=== PATIENT | female | born 1975 | race Caucasian/White ===

== ENCOUNTER 2017-09-20 09:10 | Day surgery (SDC) | payer BC ==
[~2017-09-20 09:10] MED LIST: Lactated Ringers 1,000 ML IV SCH; Midazolam 1 MG/ML 2 ML SDV ONE; Propofol 200 MG/20 ML SDV ONE; Sodium Chloride 0.9% 10 ML Syringe FLUSH PRN; Sodium Chloride 0.9% 2.5 ML Syringe FLUSH PRN; fentaNYL 100 MCG/2 ML SDV ONE
--- NOTE | 2017-09-20 09:34 | PCM.PREANE ---
Preanesthetic Assessment - Anesthesia/Transfusion/Family Hx Anesthesia History: Prior Anesthesia Without Reaction Family History of Anesthesia Reaction: No Transfusion History: No Prior Transfusion(s) Intubation History: Unknown - Review of Systems General: No Symptoms Pulmonary: No Symptoms Cardiovascular: No Symptoms Gastrointestinal: Other (rectal pain and severe GERD) Neurological: No Symptoms Other: Reports: None - Physical Assessment Height: 1.63 m Weight: 114.759 kg ASA Class: 2 Mental Status: Alert & Oriented x3 Airway Class: Mallampati = 2 Dentition: Reports: Normal Dentition Thyro-Mental Finger Breadths: 3 Mouth Opening Finger Breadths: 2 ROM/Head Extension: Full Lungs: Clear to Auscultation, Normal Respiratory Effort Cardiovascular: Regular Rate, Regular Rhythm - Lab Values: Laboratory Last Values Urine HCG, Qual NEGATIVE (NEGATIVE) 09/20/17 09:12 - Allergies Allergies/Adverse Reactions: Allergies Allergy/AdvReac Type Severity Reaction Status Date / Time No Known Allergies Allergy Verified 09/15/17 10:04 - Blood Blood Available: No - Anesthesia Plan Pre-Op Medication Ordered: None - Acknowledgements Anesthesia Type Planned: MAC Pt an Appropriate Candidate for the Planned Anesthesia: Yes Alternatives and Risks of Anesthesia Discussed w Pt/Guardian: Yes Pt/Guardian Understands and Agrees with Anesthesia Plan: Yes PreAnesthesia Questionnaire HEENT History: Reports: Other (See Below) Other HEENT History: wears glasses/contacts Cardiovascular History: Reports: Hypertension Respiratory History: Reports: None Gastrointestinal History: Reports: GERD Genitourinary History: Reports: None [employer] History: Reports: None Other OB/BYN History: IUD Musculoskeletal History: Reports: Fracture Other Musculoskeletal History: hx fx collarbone Neurological History: Reports: Migraines (bad once a month) Psychiatric History: Reports: Anxiety, Depression Endocrine/Metabolic History: Reports: Hypothyroidism, Obesity/BMI 30+ (morbid obesity BMI 43.4) Other Endocrine/Metabolic History: "pre diabetic" Hematologic History: Reports: None Immunologic History: Reports: None Oncologic (Cancer) History: Reports: None Dermatologic History: Reports: None - Past Surgical History Head Surgeries/Procedures: Reports: None HEENT Surgical History: Reports: Adenoidectomy, Oral Surgery, Tonsillectomy Cardiovascular Surgical History: Reports: None Respiratory Surgical History: Reports: None GI Surgical History: Reports: Cholecystectomy Female Surgical History: Reports: Salpingo-Oophorectomy Other Female Surgeries/Procedures: laparotomy with S&O Male Surgical History: Reports: Other (See Below) Endocrine Surgical History: Reports: None Neurological Surgical History: Reports: None Musculoskeletal Surgical History: Reports: None - History Comment History Comment: ETOH "RARELY" - SUBSTANCE USE Smoking Status *Q: Never Smoker Second Hand Smoke Exposure: No Days Per Week of Alcohol Use: 1 Number of Drinks Per Day: 1 Total Drinks Per Week: 1 Recreational Drug Use History: No - HOME MEDS Home Medications: Home Meds Hydrochlorothiazide 25 mg PO DAILY 01/11/14 [History] Propranolol HCl [Inderal Xl] 80 mg PO DAILY 01/11/14 [History] Liraglutide [Victoza] 1.8 mg SUBCUT DAILY 02/12/16 [History] DULoxetine [Cymbalta] 60 mg PO QPM 02/16/16 [History] Levothyroxine 50 mcg PO ASDIRECTED 02/17/16 [History] Levothyroxine [Synthroid] 75 mcg PO ASDIRECTED 02/17/16 [History] Modafinil [Provigil] 200 mg PO DAILY 02/17/16 [History] Cyclobenzaprine HCl 10 mg PO TID PRN 09/15/17 [History] Fluticasone Propionate [Flonase Allergy Relief] 1 spray NASBOTH ASDIRECTED 09/15 [History] NIFEdipine [Nifedipine ER] 30 mg PO DAILY 09/15/17 [History] Ranitidine HCl 300 mg PO BID 09/15/17 [History] SUMAtriptan Succinate [Imitrex] 1 tab PO ASDIRECTED PRN 09/15/17 [History] - CURRENT (IN HOUSE) MEDS Current Meds: Current Medications Lactated Ringer's (Ringers, Lactated) 1,000 mls @ 125 mls/hr IV ASDIRECTED LACY Last Admin: 09/20/17 09:19 Dose: 125 mls/hr Sodium Chloride (Saline Flush) 10 ml FLUSH ASDIRECTED PRN PRN Reason: Keep Vein Open Sodium Chloride (Saline Flush) 2.5 ml FLUSH ASDIRECTED PRN PRN Reason: Keep Vein Open Sodium Chloride (Saline Flush) 10 ml FLUSH ASDIRECTED PRN PRN Reason: Keep Vein Open Sodium Chloride (Saline Flush) 2.5 ml FLUSH ASDIRECTED PRN PRN Reason: Keep Vein Open Discontinued Medications Fentanyl (Sublimaze) Confirm Administered Dose 100 mcg .ROUTE .STK-MED ONE Stop: 09/20/17 07:38 Midazolam HCl (Versed 1 Mg/Ml) Confirm Administered Dose 2 mg .ROUTE .STK-MED ONE Stop: 09/20/17 07:38 Propofol (Diprivan 20 Ml) Confirm Administered Dose 200 mg .ROUTE .STK-MED ONE Stop: 09/20/17 07:37
[2017-09-20] MEDS ORDERED: Propofol 200 MG/20 ML SDV ONE (09:52)
[2017-09-20 10:35] VITALS: BP 114/66
--- NOTE | 2017-09-20 11:45 | PCM.OPNOTE ---
- General Post-Op/Procedure Note Date of Surgery/Procedure: 09/20/17 Operative Procedure(s): Diagnostic EGD and colonoscopy Findings: Gastritis. Normal colonoscopy Pre Op Diagnosis: proctalgia, reflux Post-Op Diagnosis: Gastritis, normal colonoscopy, proctalgia Anesthesia Technique: [facility] [place] Primary Surgeon: Holly Long Condition: Good
--- NOTE | 2017-09-20 12:52 | OR ---
SURGEON: HOLLY LONG MD DATE OF PROCEDURE: 09/20/2017 PREOPERATIVE DIAGNOSIS: GERD, proctalgia. POSTOPERATIVE DIAGNOSIS: Gastritis, proctalgia. PROCEDURE PERFORMED: Diagnostic EGD and colonoscopy. ENDOSCOPIST: Holly Long MD. ANESTHESIA: MAC. INSTRUMENT USED: Olympus colonoscope and endoscope. EXTENT OF EXAM: To the second portion of duodenum, to the cecum. PREPARATION: Good. LIMITATIONS: None. INDICATION FOR EXAMINATION: The patient is a 42-year-old female, who presents with complaints of severe reflux despite multiple different medications, as well as perianal pain. The patient and I discussed the need for diagnostic EGD and colonoscopy. We discussed the procedure, expected perioperative course, and risks including bleeding, infection, damage to surrounding structures including perforation. The patient verbalized understanding and wishes to proceed. PROCEDURE IN DETAIL: The patient was brought in to the endoscopy suite and placed in the left lateral decubitus position. A time-out was completed verifying the patient's name, age, date of , allergies, and procedure to be performed. A bite block was placed in the patient's mouth. Monitored anesthesia care induced. Continuous oxygen was provided via nasal cannula throughout the procedure. After adequate sedation was achieved, a well lubricated endoscope was placed in the patient's mouth and advanced under direct visualization to the second portion of duodenum. This appeared normal and a photograph was taken. The scope was then fully withdrawn while examining the color, texture, anatomy, and integrity of the upper GI tract. The duodenum was free of pathology. The scope was brought in the stomach and a photograph was taken of the pylorus and the GE junction. These appeared normal. The patient did have some [id number] gastritis along the antrum of the stomach, there were no ulcers noted. Biopsies were taken of the gastric antrum, body, and fundus and sent for histologic review and H. pylori testing. The scope was brought into the distal esophagus. A photograph was taken of the Z-line. This appeared normal. The remainder of the esophageal mucosa was free of pathology. The scope was removed. This portion of procedure was terminated. A digital rectal exam was performed. This exam was within normal limits. A well lubricated colonoscope was inserted in the rectum, advanced under direct visualization to the level of cecum. The cecum was identified by both visual and anatomic landmarks. A photograph was taken of cecal cap however, I was unable to retroflex the scope within the cecum due to looping of the scope more proximally. The scope was then fully withdrawn while examining the color, texture, anatomy, and integrity of mucosa from the cecum to the anal canal. The findings were consistent with normal colonic mucosa. The scope was brought into the rectum and retroflexed to allow visualization of the anal canal opening. This appeared normal and a photograph was taken. The scope was then straightened out and removed from the patient. The cecum to anus time was 6 minutes. The patient tolerated the procedure well and was taken to PACU in stable condition. ENDOSCOPIC DIAGNOSES: 1. Gastritis. 2. Proctalgia. RECOMMENDATIONS: Follow up in clinic in 2 weeks. ABDULKADIR MCADAMS /[id number]
== END 2017-09-20 11:39 | disposition home or self-care (01) ==
LOC: MW.SDS 09:10
PROVIDERS: ATTEND Surgery
DX: K59.4 Anal spasm (principal); K29.70 Gastritis, unspecified, without bleeding; K21.9 Gastro-esophageal reflux disease without esophagitis; K52.9 Noninfective gastroenteritis and colitis, unspecified; I10 Essential (primary) hypertension; E66.01 Morbid (severe) obesity due to excess calories; Z68.41 Body mass index [BMI] 40.0-44.9, adult; E03.9 Hypothyroidism, unspecified; G89.29 Other chronic pain; Z79.899 Other long term (current) drug therapy
CPT/HCPCS: 43239; 45378; 81025; J2250; J3010; J7120; J2704

== ENCOUNTER 2018-06-27 08:34 | Day surgery (SDC) | payer BC ==
[~2018-06-27 08:34] MED LIST changes: -Midazolam 1 MG/ML 2 ML SDV ONE; -Propofol 200 MG/20 ML SDV ONE; +cefOXitin 2 GM in Sodium Chloride 0.9% 50 ML IV ONE; -fentaNYL 100 MCG/2 ML SDV ONE
--- NOTE | 2018-06-27 09:42 | PCM.PREANE ---
Preanesthetic Assessment - Anesthesia/Transfusion/Family Hx Anesthesia History: Prior Anesthesia Without Reaction Family History of Anesthesia Reaction: No Transfusion History: No Prior Transfusion(s) Intubation History: Unknown - Review of Systems General: No Symptoms, Night Sweats Cardiovascular: No Symptoms Gastrointestinal: No Symptoms Neurological: No Symptoms Other: Reports: None - Physical Assessment O2 Sat by Pulse Oximetry: 97 Respiratory Rate: 18 Vital Signs: Last Vital Signs Temp 35.9 C 06/27/18 09:32 Pulse 80 06/27/18 09:32 Resp 18 06/27/18 09:32 BP 130/94 H 06/27/18 09:32 Pulse Ox 97 06/27/18 09:32 Height: 1.63 m Weight: 97.976 kg ASA Class: 5E Emergency Airway Class: Mallampati = 2 Dentition: Reports: Normal Dentition Thyro-Mental Finger Breadths: 3 Mouth Opening Finger Breadths: 3 ROM/Head Extension: Full Lungs: Clear to Auscultation, Normal Respiratory Effort Cardiovascular: Regular Rate, Regular Rhythm - Lab Values: Laboratory Last Values Urine HCG, Qual NEGATIVE (NEGATIVE) 06/27/18 09:15 - Allergies Allergies/Adverse Reactions: Allergies Allergy/AdvReac Type Severity Reaction Status Date / Time No Known Allergies Allergy Verified 06/23/18 12:34 - Blood Blood Available: No - Anesthesia Plan Pre-Op Medication Ordered: None - Acknowledgements Anesthesia Type Planned: General Anesthesia Pt an Appropriate Candidate for the Planned Anesthesia: Yes Alternatives and Risks of Anesthesia Discussed w Pt/Guardian: Yes Pt/Guardian Understands and Agrees with Anesthesia Plan: Yes PreAnesthesia Questionnaire HEENT History: Reports: Other (See Below) Other HEENT History: wears glasses/contacts Cardiovascular History: Reports: Afib (h/o paroxismal a.fib.), Hypertension Respiratory History: Reports: None Gastrointestinal History: Reports: GERD Genitourinary History: Reports: None [employer] CONSULTANT History: Other OB/BYN History: IUD Musculoskeletal History: Reports: Fracture Other Musculoskeletal History: hx fx collarbone Neurological History: Reports: Migraines, Other (See Below) (narcolepsy) Psychiatric History: Reports: Depression Endocrine/Metabolic History: Reports: Hypothyroidism, Obesity/BMI 30+ Other Endocrine/Metabolic History: pre-diabetic Hematologic History: Reports: None Immunologic History: Reports: None Oncologic (Cancer) History: Reports: None Dermatologic History: Reports: None - Past Surgical History Head Surgeries/Procedures: Reports: None HEENT Surgical History: Reports: Oral Surgery, Tonsillectomy Cardiovascular Surgical History: Reports: None Respiratory Surgical History: Reports: None GI Surgical History: Reports: Bariatric Procedure, Cholecystectomy Other GI Surgeries/Procedures: gastric bypass Female Surgical History: Reports: Salpingo-Oophorectomy, Other (See Below) Other Female Surgeries/Procedures: laparotomy with rt S&O Male Surgical History: Endocrine Surgical History: Reports: None Neurological Surgical History: Reports: None Musculoskeletal Surgical History: Reports: None - History Comment History Comment: ETOH "RARELY" - SUBSTANCE USE Smoking Status *Q: Never Smoker Recreational Drug Use History: No - HOME MEDS Home Medications: Home Meds hydroCHLOROthiazide [Hydrochlorothiazide] 25 mg PO DAILY 01/11/14 [History] DULoxetine [Cymbalta] 60 mg PO QPM 02/16/16 [History] Levothyroxine 50 mcg PO ASDIRECTED 02/17/16 [History] Levothyroxine [Synthroid] 75 mcg PO ASDIRECTED 02/17/16 [History] Modafinil [Provigil] 200 mg PO DAILY 02/17/16 [History] Fluticasone Propionate [Flonase Allergy Relief] 1 spray NASBOTH ASDIRECTED PRN 09/15/17 [History] SUMAtriptan Succinate [Imitrex] 1 tab PO ASDIRECTED PRN 09/15/17 [History] Acetaminophen/oxyCODONE [Percocet 325-5 MG] 1 tab PO ASDIRECTED PRN 06/23/18 [ History] Cyanocobalamin/Folic AC/Vit B6 [Folbee] 1 tab PO DAILY 06/23/18 [History] Metoprolol Succinate 25 mg PO DAILY 06/23/18 [History] - CURRENT (IN HOUSE) MEDS Current Meds: Current Medications Lactated Ringer's (Ringers, Lactated) 1,000 mls @ 125 mls/hr IV ASDIRECTED LACY Last Admin: 06/27/18 09:30 Dose: 125 mls/hr Sodium Chloride (Saline Flush) 10 ml FLUSH ASDIRECTED PRN PRN Reason: Keep Vein Open Sodium Chloride (Saline Flush) 2.5 ml FLUSH ASDIRECTED PRN PRN Reason: Keep Vein Open Discontinued Medications Cefoxitin Sodium 2 gm/ Sodium (Chloride) 50 mls @ 100 mls/hr IV ONETIME ONE Stop: 06/26/18 17:58 Cefoxitin Sodium 2 gm/ Sodium (Chloride) 50 mls @ 100 mls/hr IV ONETIME ONE Stop: 06/27/18 08:29
[2018-06-27] MEDS ORDERED: Bupivacaine 0.5% 10 ML SDV ONE (10:16)
[2018-06-27] MEDS ORDERED: Lidocaine 2% 100 MG/5 ML Syringe ONE (10:22)
[2018-06-27] MEDS ORDERED: Midazolam 1 MG/ML 2 ML SDV ONE (10:22)
[2018-06-27] MEDS ORDERED: fentaNYL 100 MCG/2 ML SDV ONE (10:22)
[2018-06-27] MEDS ORDERED: Propofol 200 MG/20 ML SDV ONE (10:23)
[2018-06-27] MEDS ORDERED: Rocuronium 10 MG/ML 10 ML Syringe ONE (10:27)
[2018-06-27] MEDS ORDERED: Ondansetron 4 MG/2 ML SDV ONE (10:59)
[2018-06-27] MEDS ORDERED: fentaNYL 100 MCG/2 ML SDV IVPUSH PRN (11:21)
[2018-06-27] MEDS ORDERED: HYDROmorphone 2 MG/ML Syringe IVPUSH ONE (11:22)
--- NOTE | 2018-06-27 11:23 | PCM.OPNOTE ---
- General Post-Op/Procedure Note Date of Surgery/Procedure: 06/27/18 Operative Procedure(s): Incision and drainage perianal abscess, buttock skin tags x 2 Findings: Left anterior perianal abscess, skin tag on right and left buttock Pre Op Diagnosis: Perianal abscess Post-Op Diagnosis: Perianal abscess, skin tag x 2 Anesthesia Technique: General LMA Primary Surgeon: Holly Long Condition: Good
[2018-06-27 12:55] VITALS: BP 108/58
--- NOTE | 2018-06-27 15:27 | OR ---
SURGEON: STEPHANI GARCIA MD DATE OF PROCEDURE: 06/27/2018 PREOPERATIVE DIAGNOSES: 1. Anal skin tags. 2. Perianal abscess. POSTOPERATIVE DIAGNOSES: 1. Anal skin tags. 2. Perianal abscess. PROCEDURES PERFORMED: 1. Excision of anal skin tags. 2. Incision and drainage of perianal abscess. ANESTHESIA: General LMA. FLUIDS: 1000 mL crystalloid. ESTIMATED BLOOD LOSS: 5 mL. FINDINGS: Anterior perianal abscess with no connection to indicate a perianal fistula at this time. Anal skin tags x2. COMPLICATIONS: None. INDICATIONS: The patient is a 43-year-old female who presented with perianal pain to my clinic on Tuesday. On inspection, she is noted to have a perianal abscess with a questionable fistula. The decision was made to proceed to the operating room to perform an exam under anesthesia with incision and drainage and possible fistulotomy versus seton placement. The patient will also like 2 small anal skin tags removed. The patient and I discussed the procedure, expected perioperative course, and risks including bleeding, infection, or damage to surrounding structures resulting in alteration of continence. The patient verbalized understanding and wishes to proceed. PROCEDURE IN DETAIL: The patient was brought into the OR in the OR cart and placed in a right lateral decubitus position. A time-out was completed verifying the patient's name, age, date of , allergies, and procedure to be performed. General LMA anesthesia was induced. Once adequate sedation was achieved, the buttocks were prepped and draped in usual standard fashion. On visual inspection, the patient had a thickened area anterior and just left of the midline on the anoderm. This had a central opening. I anesthetized the anoderm with 10 mL of 0.5% Marcaine plain. The patient had two 1 mm skin tags on either side of the anoderm. These were removed using a 15 blade. Hemostasis was achieved with pinpoint cautery. I turned my attention back to the perianal abscess. Using a fistula probe, I explored the abscess cavity. It appeared to go towards the midline, but there was no connection to the anal canal. Using a 15 blade, I made a 1 cm cruciate incision over the top of this opening. This allowed me to explore the abscess cavity. It measured 1.5 cm in diameter. I irrigated the abscess cavity copiously with normal saline. A bivalved proctoscope was then inserted into the rectum and I inspected my anal canal. There was a pinpoint opening along the anterior midline. I filled the abscess cavity with hydrogen peroxide, but saw no peroxide coming from it. I used a fistula probe both inside the anal canal and in the abscess cavity. There was no connection that I could find. Because of this, I did not place a seton and did not do a fistulotomy. The abscess cavity was packed with 0.5 inch Nu Gauze soaked in saline. The 4x4s were placed over the top of this. These were secured in place with mesh underwear. The patient tolerated the procedure well and was taken to PACU in stable condition. ABDULKADIR MCADAMS /[id number]
== END 2018-06-27 13:15 | disposition home or self-care (01) ==
LOC: MW.SDS 08:34
PROVIDERS: ATTEND Surgery
DX: K61.0 Anal abscess (principal); K64.4 Residual hemorrhoidal skin tags; I10 Essential (primary) hypertension; I48.0 Paroxysmal atrial fibrillation; E03.9 Hypothyroidism, unspecified; K21.9 Gastro-esophageal reflux disease without esophagitis; F32.9 Major depressive disorder, single episode, unspecified; J30.9 Allergic rhinitis, unspecified; R73.03 Prediabetes; E66.01 Morbid (severe) obesity due to excess calories; Z68.37 Body mass index [BMI] 37.0-37.9, adult; Z79.51 Long term (current) use of inhaled steroids; Z79.899 Other long term (current) drug therapy
CPT/HCPCS: 46050; 81025; J2001; J2250; J2405; J2704; J3010; J3490; J7120; 00902